=== PATIENT | female | born 1995 | race Caucasian/White ===

== ENCOUNTER 2018-02-12 19:32 | Outpatient (CLI) | payer OTHER ==
[2018-02-12] MEDS ORDERED: PRENATAL TABLE1 EAC1 PO (19:51)
[2018-02-13] MEDS ORDERED: AMPICILLIN TRI500 MG PO (14:43)
== END 2018-02-13 15:45 | disposition home or self-care (01) ==
LOC: OBS/DEL 19:32
DX: O23.43 Unspecified infection of urinary tract in pregnancy, third trimester (principal); Z34.83 Encounter for supervision of other normal pregnancy, third trimester

== ENCOUNTER → 2020-01-08 | Outpatient (CLI) | payer OTHER ==
[~2020-01-08] MED LIST: AMPICILLIN TRI500 MG PO; PRENATAL TABLE1 EAC1 PO
== END | disposition home or self-care (01) ==
LOC: PRENATAL 11:00
DX: O35.3XX0 Maternal care for (suspected) damage to fetus from viral disease in mother, not applicable or unspecified (principal); O36.8121 Decreased fetal movements, second trimester, fetus 1; O24.410 Gestational diabetes mellitus in pregnancy, diet controlled; Z36.89 Encounter for other specified antenatal screening

== ENCOUNTER 2020-02-04 21:52 | Inpatient (IN) | payer OTHER ==
[~2020-02-04] VITALS: Ht 152.4 cm; Wt 2.7 kg
== END 2020-02-08 16:33 | disposition home or self-care (01) | DRG 785 ==
LOC: OBS/DEL 21:52 → OB/GYN 23:58 → LDR 23:58 → O/R 23:58 → OB/GYN 02-05 21:22
PROVIDERS: ADMIT Obstetrics & Gynecology; ATTEND Obstetrics & Gynecology
PROC: 4A1HXCZ Monitoring of Products of Conception, Cardiac Rate, External Approach (ICD-10-PCS; 2020-02-04)
PROC: 0UL70ZZ Occlusion of Bilateral Fallopian Tubes, Open Approach (ICD-10-PCS; 2020-02-05)
PROC: 3E033VJ Introduction of Other Hormone into Peripheral Vein, Percutaneous Approach (ICD-10-PCS; 2020-02-05)
PROC: 10D00Z1 Extraction of Products of Conception, Low, Open Approach (ICD-10-PCS; principal; 2020-02-05 21:15)
DX: O64.8XX0 Obstructed labor due to other malposition and malpresentation, not applicable or unspecified (principal); O99.824 Streptococcus B carrier state complicating childbirth; Z3A.37 37 weeks gestation of pregnancy; Z37.0 Single live birth; Z30.2 Encounter for sterilization